=== PATIENT | female | born 1995 | race Caucasian/White ===

== ENCOUNTER 2016-09-08 19:29 | Emergency (ER) | payer MEDICAID ==
[2016-09-08] MEDS ORDERED: FLUCONAZOLE 100 MG TABLET PO STA (20:25)
[2016-09-08] MEDS ORDERED: FLUCONAZOLE 100 MG TABLET ONE (20:26)
--- NOTE | 2016-09-08 20:54 | ED Physician Documentation ---
PD HPI FEMALE - Stated complaint Stated Complaint: FEMALE - Chief complaint Chief Complaint: Abd Pain - History obtained from History obtained from: Patient - History of Present Illness Timing - onset: Yesterday Timing - details: Gradual onset Pain level max: 0 Pain level max: 0 Associated symptoms: Vaginal discharge. No: Fever, Abdominal pain, Pelvic pain , Vaginal pain, Vaginal bleeding, Genital sore/lesion, Dysuria, Urinary frequency Contributing factors: No: Recently seen: Not recently seen - Additional information Additional information: c/o 1 day of vaginal itching and white discharge. She is primarily concerned that symptoms seemed to coincide with recent unprotected sex. She also requests refill of her acyclovir. Review of Systems Constitutional: denies: Fever GI: denies: Abdominal Pain : reports: Discharge. 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 : None HEENT: None Psych: Depression Musculoskeletal: None Derm: None - Past Surgical History Past Surgical History: No - Present Medications Home Medications: Ambulatory Orders Medication Instructions Recorded Confirmed Acyclovir 200 mg PO TID 09/08/16 09/08/16 Acyclovir 800 mg PO BID #14 tablet 09/08/16 - Allergies Allergies/Adverse Reactions: Allergies Allergy/AdvReac Type Severity Reaction Status Date / Time Latex, Natural Rubber AdvReac Rash Verified 09/08/16 19:44 - Social History Does the pt smoke?: No Smoking Status: Never smoker Does the pt drink ETOH?: No Does the pt have substance abuse?: No - Immunizations Immunizations are current?: No - POLST Patient has POLST: No PD ED PE NORMAL - Vitals Vital signs reviewed: Yes - General General: Alert and oriented X 3, No acute distress, Well developed/nourished - Abdomen Abdomen: Soft, Non tender - Back Back: No CVA TTP Results - Vitals Vitals: Vital Signs - 24 hr 09/08/16 09/08/16 19:40 21:43 Temperature 36.7 C Heart Rate 109 H 106 H Respiratory 20 20 Rate Blood Pressure 121/77 123/70 O2 Saturation 99 100 Oxygen O2 Source Room air PD MEDICAL DECISION MAKING - ED course Complexity details: considered differential, d/w patient ED course: Sounds unlikely to be STD, but considering HPI, will test but not treat empirically (I do recommend tx. if results return (+)). Given one-time dose of diflucan for possible karma vaginitis Departure - Departure Disposition: 01 Home, Self Care Clinical Impression: Vaginal discharge Condition: Good Instructions: ED Vaginal Infec Fungal Karma Follow-Up: Winter Guadalupe DO [Provider Admit Priv/Credential] - Within 1 week Prescriptions: Acyclovir 800 mg PO BID #14 tablet Discharge Date/Time: 09/08/16 21:44
[2016-09-08 21:44] VITALS: BP 123/70
== END 2016-09-08 21:44 | disposition home or self-care (01) ==
LOC: ED 19:29
DX: N89.8 Other specified noninflammatory disorders of vagina (principal)
CPT/HCPCS: 87491; 87591; 99283; A9270

== ENCOUNTER 2017-03-10 09:51 | Emergency (ER) | payer MEDICAID ==
[2017-03-10 10:54] LABS: RAPID STREP SCREEN REAGENT QC YELLOW (YELLOW)
--- NOTE | 2017-03-10 11:08 | ED Physician Documentation ---
PD HPI HEENT - Stated complaint Stated Complaint: THROAT PX - Chief complaint Chief Complaint: Heent - History obtained from History obtained from: Patient - History of Present Illness Timing - onset: Last night Timing - duration: Hours Timing - details: Gradual onset, Still present Location: Right ear, Throat Improves: Medication Worsens: Swalllowing Associated symptoms: Congestion, Rhinorrhea, Swollen nodes, Headache, Cough Similar symptoms before: Diagnosis (OM) Recently seen: Not recently seen Review of Systems Constitutional: reports: Myalgias, Fatigue. denies: Fever, Chills Eyes: denies: Decreased vision Ears: reports: Ear pain Nose: reports: Rhinorrhea / runny nose, Congestion Throat: reports: Sore throat Cardiac: denies: Chest pain / pressure, Palpitations Respiratory: reports: Cough. 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 : None HEENT: None Psych: Depression Musculoskeletal: None Derm: None - Past Surgical History Past Surgical History: No - Present Medications Home Medications: Ambulatory Orders Medication Instructions Recorded Confirmed Acyclovir 400 mg PO TID 09/08/16 03/10/17 Azithromycin [Zithromax] 250 mg PO DAILY #6 tablet 03/10/17 - Allergies Allergies/Adverse Reactions: Allergies Allergy/AdvReac Type Severity Reaction Status Date / Time Latex, Natural Rubber AdvReac Rash Verified 03/10/17 10:10 - Social History Does the pt smoke?: No Smoking Status: Never smoker Does the pt drink ETOH?: Yes Does the pt have substance abuse?: No - Immunizations Immunizations are current?: No - POLST Patient has POLST: No PD ED PE NORMAL - Vitals Vital signs reviewed: Yes (Tachycardia and hypertension) - General General: No acute distress, Well developed/nourished - HEENT HEENT: Atraumatic, PERRL, EOMI, Other (The right TM is minimally inflamed as is the left. The pharynx has a 2+ tonsil which is cryptic with exudate on the right side left is much less involved.) - Neck Neck: Supple, no meningeal sign, No bony TTP - Cardiac Cardiac: RRR, No murmur - Respiratory Respiratory: No respiratory distress, Clear bilaterally - Abdomen Abdomen: Soft, Non tender - Derm Derm: Normal color, Warm and dry, No rash - Extremities Extremities: No deformity, No edema - Neuro Neuro: No motor deficit, No sensory deficit Eye Opening: Spontaneous Motor: Obeys Commands Verbal: Oriented GCS Score: 15 - Psych Psych: Normal mood, Normal affect Results - Vitals Vitals: Vital Signs - 24 hr 03/10/17 10:07 Temperature 37.3 C Heart Rate 109 H Respiratory 16 Rate Blood Pressure 131/86 H O2 Saturation 100 Oxygen O2 Source Room air - Labs Labs: Laboratory Tests 03/10/17 10:22 Group A Strep Rapid Negative PD MEDICAL DECISION MAKING - ED course Complexity details: reviewed results, considered differential, d/w patient ED course: 22-year-old female with cryptic tonsil on the right that is inflamed and with exudate. She is given dexamethasone 10 mg here in the emergency department will place her on some azithromycin. Departure - Departure Disposition: 01 Home, Self Care Clinical Impression: Tonsillitis with exudate Condition: Stable Instructions: ED Peritonsillar Infec Abx No I andD Follow-Up: [facility] [Provider Group] Prescriptions: Azithromycin [Zithromax] 250 mg PO DAILY #6 tablet Comments: Today in the Emergency Department your blood pressure was elevated. This can happen from the stress of the visit itself, from a current illness or circumstance or from uncontrolled hypertension. If you take blood pressure medications take your usual mediations, have your blood pressure re-checked in an appropriate setting and follow up any elevation with your primary care doctor. Forms: Activity restrictions
[2017-03-10 11:25] VITALS: BP 119/73
== END 2017-03-10 11:24 | disposition home or self-care (01) ==
LOC: ED 09:51
DX: J03.90 Acute tonsillitis, unspecified (principal); R03.0 Elevated blood-pressure reading, without diagnosis of hypertension
CPT/HCPCS: 87070; 87430; 99283

== ENCOUNTER 2017-04-02 11:26 | Emergency (ER) | payer MEDICAID ==
[2017-04-02 12:23] LABS: MUDS CUTOFF CONCENTRATIONS CUTOFF CONC BELOW:
[2017-04-02 12:25] LABS: HGB - HEMOGLOBIN 14.5 g/dL (12.0-16.0); MEAN CORPUSCULAR HEMOGLOBIN 28.2 pg (27.0-31.0); MEAN CORPUSCULAR HGB CONC 33.7 g/dL (32.0-36.0); MEAN CORPUSCULAR VOLUME 83.6 fL (81.0-99.0); MEAN PLATELET VOLUME 8.2 fL (7.9-10.8); RED BLOOD COUNT 5.14 10^6/uL (4.20-5.40); RED CELL DISTRIBUTION WIDTH 12.6 % (12.0-15.0); WHITE BLOOD COUNT 6.8 x10^3/uL (4.8-10.8)
[2017-04-02 12:26] LABS: BILIRUBIN,URINE NEGATIVE (NEGATIVE); GLUCOSE, URINE (UA) NEGATIVE (NEGATIVE); KETONES,URINE (UA) TRACE mg/dL (NEGATIVE); LEUKOCYTE ESTERASE, URINE NEGATIVE (NEGATIVE); NITRITE,URINE NEGATIVE (NEGATIVE); OCCULT BLOOD,URINE TRACE-INTA (NEGATIVE); PH,URINE 5.5 PH (5.0-7.5); PROTEIN,URINE NEGATIVE (NEGATIVE); UROBILINOGEN,URINE 0.2 (NORMAL) E.U./dL (NORMAL)
[2017-04-02 12:27] LABS: CLARITY,URINE CLEAR (CLEAR); HCG UR QUAL NEGATIVE
[2017-04-02 12:37] LABS: AMPHETAMINE SCREEN,URINE NEGATIVE (NEGATIVE); BENZODIAZEPINES SCREEN, URINE NEGATIVE (NEGATIVE); COCAINE SCREEN URINE NEGATIVE (NEGATIVE); METHAMPHETAMINES SCREEN, URINE NEGATIVE (NEGATIVE); OPIATE SCREEN, URINE NEGATIVE (NEGATIVE)
--- NOTE | 2017-04-02 12:37 | ED Physician Documentation ---
PD HPI MHE - Stated complaint Stated Complaint: ANXIETY - Chief complaint Chief Complaint: General - History obtained from History obtained from: Patient - History of Present Illness Primary symptom: Suicidal ideation, Anxiety Timing - onset: How many days ago (several) Pain level max: 0 Pain level now: 0 Contributing factors: Family Similar symptoms before: Diagnosis (anxiety, depression) Recently seen: Not recently seen - Additional information Additional information: Patient is a 22-year-old female who moved with the mora approximately 6 years ago. She states she has had increasing anxiety over the past several weeks. She has been feeling more more suicidal. Has cut her wrists in the past. Was last hospitalized as a child. Does not have a doctor on the mora. Does not have a psychiatrist or therapist that she sees. She states that she does feel like her family is supportive of her. Review of Systems Ten Systems: 10 systems reviewed and negative Constitutional: denies: Fever, Chills Ears: denies: Ear pain Nose: denies: Rhinorrhea / runny nose, Congestion Throat: denies: Sore throat Cardiac: denies: Chest pain / pressure Respiratory: denies: Cough GI: denies: Abdominal Pain, Nausea, Vomiting, Diarrhea Skin: denies: Rash Musculoskeletal: denies: Neck pain, Back pain Neurologic: denies: Headache Psychiatric: reports: Depressed, Suicidal, Anxiety, Insomnia. 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 : None HEENT: None Psych: Depression Musculoskeletal: None Derm: None - Past Surgical History Past Surgical History: No - Present Medications Home Medications: Ambulatory Orders Medication Instructions Recorded Confirmed Acyclovir 400 mg PO TID 09/08/16 03/10/17 Azithromycin [Zithromax] 250 mg PO DAILY #6 tablet 03/10/17 LORazepam [Ativan] 0.5 mg PO Q8H PRN #6 tablet 04/02/17 - Allergies Allergies/Adverse Reactions: Allergies Allergy/AdvReac Type Severity Reaction Status Date / Time Latex, Natural Rubber AdvReac Rash Verified 03/10/17 10:10 - Social History Does the pt smoke?: No Smoking Status: Never smoker Does the pt drink ETOH?: Yes Does the pt have substance abuse?: No - Immunizations Immunizations are current?: No - POLST Patient has POLST: No PD ED PE NORMAL - Vitals Vital signs reviewed: Yes - General General: Alert and oriented X 3, No acute distress, Well developed/nourished, Other (tearful) - HEENT HEENT: PERRL, Moist mucous membranes, Pharynx benign - Neck Neck: Supple, no meningeal sign - Cardiac Cardiac: RRR, Strong equal pulses - Respiratory Respiratory: No respiratory distress, Clear bilaterally - Abdomen Abdomen: Soft, Non tender, Non distended - Derm Derm: Warm and dry, Other (old scars to B wrists) - Extremities Extremities: No deformity - Neuro Neuro: Alert and oriented X 3 - Psych Psych: Other (tearful) Results - Vitals Vitals: Vital Signs - 24 hr 04/02/17 04/02/17 04/02/17 11:33 13:09 14:37 Temperature 37.2 C 36.8 C 36.9 C Heart Rate 88 74 91 Respiratory 16 16 18 Rate Blood Pressure 133/102 H 110/80 117/81 H O2 Saturation 99 99 100 Oxygen O2 Source Room air - Labs Labs: Laboratory Tests 04/02/17 04/02/17 04/02/17 11:55 11:55 11:55 WBC RBC Hgb Hct MCV MCH MCHC RDW Plt Count MPV Sodium Potassium Chloride Carbon Dioxide Anion Gap BUN Creatinine Estimated GFR (MDRD) Glucose Calcium Total Bilirubin AST ALT Alkaline Phosphatase Total Protein Albumin Globulin Albumin/Globulin Ratio Lipase Urine Color YELLOW Urine Clarity CLEAR Urine pH 5.5 Ur Specific [place] 1.025 1.025 Urine Protein NEGATIVE Urine Glucose (UA) NEGATIVE Urine Ketones TRACE Urine Occult Blood TRACE-INTA Urine Nitrite NEGATIVE Urine Bilirubin NEGATIVE Urine Urobilinogen 0.2 (NORMAL) Ur Leukocyte Esterase NEGATIVE Ur Microscopic Review NOT INDICATED Urine Culture Comments NOT INDICATED Urine HCG, Qual NEGATIVE Salicylates Urine Opiates Screen NEGATIVE Ur Oxycodone Screen NEGATIVE Urine Methadone Screen NEGATIVE Ur Propoxyphene Screen NEGATIVE Acetaminophen Ur Barbiturates Screen NEGATIVE Ur Tricyclics Screen NEGATIVE Ur Phencyclidine Scrn NEGATIVE Ur Amphetamine Screen NEGATIVE U Methamphetamines Scrn NEGATIVE U Benzodiazepines Scrn NEGATIVE Urine Cocaine Screen NEGATIVE U Cannabinoids Screen POSITIVE H Ethyl Alcohol 04/02/17 04/02/17 12:19 12:19 WBC 6.8 RBC 5.14 Hgb 14.5 Hct 43.0 MCV 83.6 MCH 28.2 MCHC 33.7 RDW 12.6 Plt Count 230 MPV 8.2 Sodium 136 Potassium 4.0 Chloride 105 Carbon Dioxide 23 Anion Gap 8.0 BUN 17 Creatinine 0.5 Estimated GFR (MDRD) 152 Glucose 92 Calcium 9.1 Total Bilirubin 0.5 AST 23 ALT 18 Alkaline Phosphatase 31 L Total Protein 7.3 Albumin 4.5 Globulin 2.8 Albumin/Globulin Ratio 1.6 Lipase 23 Urine Color Urine Clarity Urine pH Ur Specific [place] Urine Protein Urine Glucose (UA) Urine Ketones Urine Occult Blood Urine Nitrite Urine Bilirubin Urine Urobilinogen Ur Leukocyte Esterase Ur Microscopic Review Urine Culture Comments Urine HCG, Qual Salicylates < 6.0 Urine Opiates Screen Ur Oxycodone Screen Urine Methadone Screen Ur Propoxyphene Screen Acetaminophen < 10 L Ur Barbiturates Screen Ur Tricyclics Screen Ur Phencyclidine Scrn Ur Amphetamine Screen U Methamphetamines Scrn U Benzodiazepines Scrn Urine Cocaine Screen U Cannabinoids Screen Ethyl Alcohol < 5.0 PD MEDICAL DECISION MAKING - ED course Complexity details: reviewed results, re-evaluated patient, considered differential, d/w patient ED course: Patient is a 22-year-old female who presents to the emergency department with worsening anxiety, depression and vague suicidal ideation. No current plan. Patient is medically clear for psychiatric care. Social work was consulted and the patient is able to contract for safety and will follow up with the next day appointment at [facility]. She has good family support at home. She will return if she worsens. Patient counseled regarding signs and symptoms for which I believe and urgent re-evaluation would be necessary. Patient with good understanding of and agreement to plan and is comfortable going home at this time This document was made in part using voice recognition software. While efforts are made to proofread this document, sound alike and grammatical errors may occur. Departure - Departure Disposition: 01 Home, Self Care Clinical Impression: Anxiety Depression Qualifiers: Depression Type: unspecified Qualified Code(s): F32.9 - Major depressive disorder, single episode, unspecified Condition: Good Instructions: ED Stress React, ED Depression Prescriptions: LORazepam [Ativan] 0.5 mg PO Q8H PRN #6 tablet PRN Reason: Anxiety Comments: Follow up with [facility] tomorrow as scheduled with Ashley (social work) today. Return if you worsen. Do not drive or operate heavy machinery for at least 8 hours after taking Ativan. Crisis Line and is available to talk to someone [email or web address] is also available to chat with someone online if you prefer. There are also many resources on this website and apps for your phone to help with your mental health Discharge Date/Time: 04/02/17 14:47
[2017-04-02 12:38] LABS: METHADONE SCREEN, URINE NEGATIVE (NEGATIVE); OXYCODONE SCREEN, URINE NEGATIVE (NEGATIVE); PROPOXYPHENE SCREEN, URINE NEGATIVE (NEGATIVE); TRICYCLIC ANTIDEPRESSANT,URINE NEGATIVE (NEGATIVE)
[2017-04-02] MEDS ORDERED: CETIRIZINE 10 MG TABLET PO STA (12:46)
[2017-04-02 12:47] LABS: ALBUMIN 4.5 g/dL (3.2-5.5); ALBUMIN/GLOBULIN RATIO 1.6 (1.0-2.2); ALKALINE PHOSPHATASE 31 IU/L (42-121); ALT ALANINE AMINOTRANSFERASE 18 IU/L (10-60); AST ASPARTATE AMINOTRANSFERASE 23 IU/L (10-42); BILIRUBIN,TOTAL 0.5 mg/dL (0.2-1.0); BUN - BLOOD UREA NITROGEN 17 mg/dL (6-20); CALCIUM 9.1 mg/dL (8.5-10.3); CARBON DIOXIDE - CO2 23 mmol/L (21-32); CHLORIDE 105 mmol/L (101-111); CREATININE 0.5 mg/dL (0.4-1.0); GFR - MDRD 152 (>89); GLUCOSE 92 mg/dL (70-100); LIPASE 23 U/L (22-51); SALICYLATE < 6.0 mg/dL; SODIUM 136 mmol/L (135-145); TOTAL PROTEIN 7.3 g/dL (6.7-8.2)
[2017-04-02 12:52] LABS: ACETAMINOPHEN < 10 ug/mL (10-30)
[2017-04-02 14:39] VITALS: BP 117/81
[2017-04-02] MEDS ORDERED: IBUPROFEN 600 MG TABLET PO STA (14:39)
== END 2017-04-02 14:47 | disposition home or self-care (01) ==
LOC: ED 11:26
DX: F32.9 Major depressive disorder, single episode, unspecified (principal)
CPT/HCPCS: 36415; 80053; 80306; 80307; 80320; 80329; 81003; 81025; 83690; 85027; 99283; 99284; A9270; 81001; 87086

== ENCOUNTER 2017-07-21 23:20 | Emergency (ER) | payer MEDICAID ==
[2017-07-21 23:38] LABS: BILIRUBIN,URINE NEGATIVE (NEGATIVE); GLUCOSE, URINE (UA) NEGATIVE (NEGATIVE); KETONES,URINE (UA) NEGATIVE (NEGATIVE); LEUKOCYTE ESTERASE, URINE SMALL (NEGATIVE); NITRITE,URINE NEGATIVE (NEGATIVE); OCCULT BLOOD,URINE NEGATIVE (NEGATIVE); PROTEIN,URINE NEGATIVE (NEGATIVE); UROBILINOGEN,URINE 0.2 (NORMAL) E.U./dL (NORMAL)
[2017-07-21 23:39] LABS: CLARITY,URINE CLEAR (CLEAR)
[2017-07-21 23:41] LABS: HCG UR QUAL NEGATIVE
[2017-07-21 23:44] LABS: BACTERIA,URINE Few /HPF (None Seen); SQUAMOUS EPITHELIAL CELL,UR MANY Squamous (<= Few)
--- NOTE | 2017-07-22 00:29 | ED Physician Documentation ---
PD HPI FEMALE - Stated complaint Stated Complaint: FEMALE - Chief complaint Chief Complaint: Abd Pain - History obtained from History obtained from: Patient - History of Present Illness Timing - onset: How many days ago (2-3) Timing - duration: Days Associated symptoms: Dysuria. No: Fever Contributing factors: No: Recently seen: Not recently seen - Additional information Additional information: c/o burning dysuria x 2-3 days. denies frequency or vaginal discharge. she is sexually active and requests STD tests, as well. Review of Systems Constitutional: denies: Fever GI: reports: Reviewed and negative : reports: Dysuria. 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 : None HEENT: None Psych: Depression Musculoskeletal: None Derm: None - Past Surgical History Past Surgical History: No - Present Medications Home Medications: Ambulatory Orders Medication Instructions Recorded Confirmed Acyclovir 400 mg PO TID 09/08/16 03/10/17 Azithromycin [Zithromax] 250 mg PO DAILY #6 tablet 03/10/17 LORazepam [Ativan] 0.5 mg PO Q8H PRN #6 tablet 04/02/17 Nitrofurantoin [Macrobid] 100 mg PO BID #9 capsule 07/22/17 - Allergies Allergies/Adverse Reactions: Allergies Allergy/AdvReac Type Severity Reaction Status Date / Time Latex, Natural Rubber AdvReac Rash Verified 07/21/17 23:31 - Social History Does the pt smoke?: No Smoking Status: Never smoker Does the pt drink ETOH?: Yes Does the pt have substance abuse?: No - Immunizations Immunizations are current?: No - POLST Patient has POLST: No PD ED PE NORMAL - Vitals Vital signs reviewed: Yes - General General: Alert and oriented X 3, No acute distress, Well developed/nourished - Abdomen Abdomen: Soft, Non tender - Back Back: No CVA TTP Results - Vitals Vitals: Vital Signs - 24 hr 07/21/17 07/22/17 23:24 00:51 Temperature 36.0 C L Heart Rate 86 68 Respiratory 16 18 Rate Blood Pressure 115/68 98/67 O2 Saturation 97 95 Oxygen O2 Source Room air - Labs Labs: Laboratory Tests 07/21/17 23:34 Urine Color YELLOW Urine Clarity CLEAR Urine pH 6.0 Ur Specific [place] 1.010 Urine Protein NEGATIVE Urine Glucose (UA) NEGATIVE Urine Ketones NEGATIVE Urine Occult Blood NEGATIVE Urine Nitrite NEGATIVE Urine Bilirubin NEGATIVE Urine Urobilinogen 0.2 (NORMAL) Ur Leukocyte Esterase SMALL H Urine RBC 6-10 H Urine WBC 6-10 H Ur Squamous Epith Cells MANY Squamous H Urine Bacteria Few Ur Microscopic Review INDICATED Urine Culture Comments NOT INDICATED Urine HCG, Qual NEGATIVE PD MEDICAL DECISION MAKING - ED course Complexity details: reviewed results, considered differential, d/w patient ED course: will treat as UTI although she will need additional treatment if GC/C (+]. she does not describe symptoms particularly suggestive of GC/C, so will defer treatment pending results Departure - Departure Disposition: 01 Home, Self Care Clinical Impression: Cystitis, UTI (urinary tract infection) Condition: Good Instructions: ED UTI Cystitis Female Follow-Up: [facility] [Provider Group] [facility] [Provider Group] Prescriptions: Nitrofurantoin [Macrobid] 100 mg PO BID #9 capsule Comments: You can also take pyridium (Azo is one of the more common brand names) as directed on the label for the symptoms. Discharge Date/Time: 07/22/17 00:51
[2017-07-22] MEDS ORDERED: NITROFURANTOIN MACRO 100 MG CAPSULE PO STA (00:43)
[2017-07-22] MEDS ORDERED: PHENAZOPYRIDINE 100 MG TABLET PO STA (00:43)
[2017-07-22 00:51] VITALS: BP 98/67
== END 2017-07-22 00:51 | disposition home or self-care (01) ==
LOC: ED 23:20
DX: N30.00 Acute cystitis without hematuria (principal)
CPT/HCPCS: 81001; 81025; 87491; 87591; 99283; A9270; 81003; 87086

== ENCOUNTER 2017-08-29 20:16 | Emergency (ER) | payer MEDICAID ==
[2017-08-29 20:21] VITALS: BP 115/87
--- NOTE | 2017-08-29 20:27 | ED Physician Documentation ---
PD HPI NVD - Stated complaint Stated Complaint: NAUSEA/ABD PX - Chief complaint Chief Complaint: Abd Pain - History obtained from History obtained from: Patient - History of Present Illness Timing - onset: Unknown ("a while ago"; asked to give general time frame, she repeats "for a while". I ask if it's been days, weeks, months, or years, and she tells me "it should all be in the chart".) Timing - details: Other (unknown (various c/o; see below)) - Additonal information Additional information: limited HPI and ROS. Patient tells me "my stomach hurts, my head hurts, my anxiety is acting up, my head hurts, I just feel like shit" (per patient). I ask for clarification and for her to provide me with, specifically, what bothers her the most tonight, and she says "everything. I feel like everything is wrong". By way of example, I explain that if her big toe hurts, I would consider gout, but if it does not, I would not have to worry about this diagnosis. She says "both of my feet do hurt because I've been working for 12 hours straight". At this point, I again asked her to try to narrow down the symptoms she was having that were the most bothersome at this time. Unfortunately, she again gives a long list of c/o similar to previous answer ("my stomach, my head, I'm nauseas...everything. It's everything." (per patient)). I ask what medications she takes, and she says "whatever you guys gave me last time. It's on the chart ". I ask if she has a doctor and she says no. I ask if she has insurance (for purposes of both follow-up as well as ascertaining whether previous testing has been performed for these symptoms), and she says she does and that she has an appointment in about 2 weeks with a doctor. She repeatedly refers me to "look at the chart". 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 HEENT: None Psych: Depression Musculoskeletal: None Derm: None - Past Surgical History Past Surgical History: No - Present Medications Home Medications: Ambulatory Orders Medication Instructions Recorded Confirmed No Known Home Medications [No 08/29/17 08/29/17 Known Home Medications] - Allergies Allergies/Adverse Reactions: Allergies Allergy/AdvReac Type Severity Reaction Status Date / Time Latex, Natural Rubber AdvReac Rash Verified 08/29/17 20:20 - Social History Does the pt smoke?: No Smoking Status: Never smoker Does the pt drink ETOH?: Yes Does the pt have substance abuse?: No - Immunizations Immunizations are current?: No - POLST Patient has POLST: No PD ED PE NORMAL - Vitals Vital signs reviewed: Yes - General General: Alert and oriented X 3, No acute distress, Well developed/nourished, Other (poor eye contact) - HEENT HEENT: PERRL, EOMI, Moist mucous membranes - Derm Derm: Normal color, Warm and dry - Neuro Neuro: Alert and oriented X 3, Normal speech Eye Opening: Spontaneous Motor: Obeys Commands Verbal: Oriented GCS Score: 15 Results - Vitals Vitals: Vital Signs - 24 hr 08/29/17 20:18 Temperature 36.8 C Heart Rate 92 Respiratory 16 Rate Blood Pressure 115/87 H O2 Saturation 100 Oxygen O2 Source Room air - Labs Labs: Laboratory Tests 08/29/17 08/29/17 20:29 20:29 WBC 10.7 RBC 5.23 Hgb 14.5 Hct 44.8 MCV 85.6 MCH 27.8 MCHC 32.5 RDW 12.8 Plt Count 293 MPV 7.7 L Neut # 7.4 H Lymph # 2.5 [place] # 0.7 Eos # 0.0 Baso # 0.1 Absolute Nucleated RBC 0.01 Nucleated RBC % 0.0 Sodium 135 Potassium 3.2 L Chloride 101 Carbon Dioxide 26 Anion Gap 8.0 BUN 8 Creatinine 0.7 Estimated GFR (MDRD) 103 Glucose 91 Calcium 9.3 Total Bilirubin 1.1 H AST 28 ALT 19 Alkaline Phosphatase 36 L Total Protein 7.7 Albumin 4.6 Globulin 3.1 Albumin/Globulin Ratio 1.5 Lipase 25 PD MEDICAL DECISION MAKING - ED course Complexity details: reviewed old records, considered differential, d/w patient ED course: Patient did not provide clear or concise answers to HPI/ROS questions. On exam, she repeatedly put her hands over her abdomen even after I asked her to move them to the side so that I could perform exam; I explained that I would push gently, but I needed to perform an exam to assess if she is tender. She consistently would immediately move both hands in the exact location I was just starting to apply pressure to each time I would try. I explained that we would start with IV fluids, antinauseant IV, and blood work and urinalysis, and that I would try again with getting more information from her after this was completed. Shortly after I left the room, she was asked for insurance information by registration, and, I am told, patient then got up without assistance or difficulty and walked out of ED. 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
[2017-08-29 20:35] LABS: BASOPHILS # (AUTO) 0.1 10^3/uL (0.0-0.1); BASOPHILS % (AUTO) 0.7 %; EOSINOPHILS % (AUTO) 0.1 %; HGB - HEMOGLOBIN 14.5 g/dL (12.0-16.0); LYMPHOCYTES # (AUTO) 2.5 10^3/uL (1.5-3.5); LYMPHOCYTES % (AUTO) 23.4 %; MEAN CORPUSCULAR HEMOGLOBIN 27.8 pg (27.0-31.0); MEAN CORPUSCULAR HGB CONC 32.5 g/dL (32.0-36.0); MEAN CORPUSCULAR VOLUME 85.6 fL (81.0-99.0); MEAN PLATELET VOLUME 7.7 fL (7.9-10.8); MONOCYTES # (AUTO) 0.7 10^3/uL (0.0-1.0); MONOCYTES % (AUTO) 6.7 %; NEUTROPHILS # (AUTO) 7.4 10^3/uL (1.5-6.6); NEUTROPHILS % (AUTO) 69.1 %; PLT - PLATELET COUNT 293 10^3/uL (130-450); RED BLOOD COUNT 5.23 10^6/uL (4.20-5.40); RED CELL DISTRIBUTION WIDTH 12.8 % (12.0-15.0); WHITE BLOOD COUNT 10.7 x10^3/uL (4.8-10.8)
[2017-08-29] MEDS ORDERED: ONDANSETRON 4 MG/2 ML VIAL IVP STA (20:40)
[2017-08-29] MEDS ORDERED: SODIUM CHLORIDE 0.9% 1,000 ML IV STA (20:40)
[2017-08-29 20:47] LABS: ALBUMIN 4.6 g/dL (3.2-5.5); ALBUMIN/GLOBULIN RATIO 1.5 (1.0-2.2); BILIRUBIN,TOTAL 1.1 mg/dL (0.2-1.0); CALCIUM 9.3 mg/dL (8.5-10.3); CREATININE 0.7 mg/dL (0.4-1.0); TOTAL PROTEIN 7.7 g/dL (6.7-8.2)
== END 2017-08-29 20:45 | disposition left against medical advice (07) ==
LOC: ED 20:16
DX: R10.9 Unspecified abdominal pain (principal); R51 Headache; F41.9 Anxiety disorder, unspecified; Z53.29 Procedure and treatment not carried out because of patient's decision for other reasons
CPT/HCPCS: 36415; 80053; 83690; 85025; 99282

== ENCOUNTER 2017-10-11 15:02 | Emergency (ER) | payer MEDICAID ==
[2017-10-11 15:22] VITALS: BP 124/75
[2017-10-11] MEDS ORDERED: IBUPROFEN 800 MG TABLET PO STA (15:49)
[2017-10-11] MEDS ORDERED: PENICILLIN VK 250 MG TABLET PO STA (16:37)
[2017-10-11] MEDS ORDERED: DEXAMETHASONE 10 MG/ML VIAL PO STA (16:38)
--- NOTE | 2017-10-11 16:46 | ED Physician Documentation ---
PD HPI HEENT - Stated complaint Stated Complaint: LT EAR PX/SOA/VOMITING - Chief complaint Chief Complaint: Heent - History obtained from History obtained from: Patient - History of Present Illness Timing - onset: How many days ago (2) Timing - details: Still present Location: Throat Associated symptoms: Swollen nodes Similar symptoms before: Has not had sx before - Additional information Additional information: The patient is a 22-year-old female who presents with sore throat that has been getting progressively worse over the past 2 days. She also reports left earache and frontal headache. She reports slight cough, nonproductive. She denies fever, shortness of breath, or abdominal pain. She denies history of similar symptoms in the past. Review of Systems Constitutional: denies: Fever Eyes: denies: Irritation Ears: reports: Ear pain (left) Nose: denies: Congestion Throat: reports: Sore throat Cardiac: denies: Chest pain / pressure Respiratory: reports: Cough (slight). denies: Dyspnea GI: reports: Vomiting (Once today after eating.). 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 : None HEENT: None Psych: Depression Musculoskeletal: None Derm: None - Past Surgical History Past Surgical History: No - Present Medications Home Medications: Ambulatory Orders Medication Instructions Recorded Confirmed HYDROcod/ACETAM 5/325 [Vicodin 1 ea PO Q6H PRN #10 tablet 10/11/17 5/325] Penicillin V Potassium 500 mg PO QID #40 tablet 10/11/17 - Allergies Allergies/Adverse Reactions: Allergies Allergy/AdvReac Type Severity Reaction Status Date / Time Latex, Natural Rubber AdvReac Rash Verified 10/11/17 15:22 - Social History Does the pt smoke?: No Smoking Status: Never smoker Does the pt drink ETOH?: Yes Does the pt have substance abuse?: No - Immunizations Immunizations are current?: No - POLST Patient has POLST: No PD ED PE NORMAL - Vitals Vital signs reviewed: Yes (normal) - General General: Alert and oriented X 3, Well developed/nourished, Other (Talks with muffled voice.) - HEENT HEENT: Atraumatic, Moist mucous membranes, Other (Oropharynx is erythematous, with scant exudates bilaterally.) - Neck Neck: Supple, no meningeal sign, Other (Enlarged anterior cervical nodes bilaterally, more on the left than the right.) - Cardiac Cardiac: RRR, No murmur - Respiratory Respiratory: No respiratory distress, Clear bilaterally - Abdomen Abdomen: Soft, Non tender - Back Back: No CVA TTP - Derm Derm: No rash - Extremities Extremities: No edema - Neuro Neuro: Alert and oriented X 3, No motor deficit Results - Vitals Vitals: Vital Signs - 24 hr 10/11/17 15:18 Temperature 36.8 C Heart Rate 92 Respiratory 16 Rate Blood Pressure 124/75 O2 Saturation 100 Oxygen O2 Source Room air - Labs Labs: Laboratory Tests 10/11/17 15:45 Group A Strep Rapid POSITIVE H PD MEDICAL DECISION MAKING - ED course Complexity details: reviewed results, re-evaluated patient, considered differential, d/w patient ED course: The patient's presentation is most consistent with acute streptococcal pharyngitis, with a positive rapid strep screen. Clinical assessment does not suggest peritonsillar abscess. Treatment in the emergency department included administration of ibuprofen 800 mg orally, penicillin 500 mg orally, and dexamethasone 10 mg orally. She is being discharged with prescriptions for penicillin and Vicodin, 10 tablets. I discussed with her the expected course of illness, antibiotic treatment and outpatient follow-up, as well as potentially worrisome signs or symptoms that should prompt reevaluation in the emergency department. - Sepsis Event Vital Signs: Vital Signs - 24 hr 10/11/17 15:18 Temperature 36.8 C Heart Rate 92 Respiratory 16 Rate Blood Pressure 124/75 O2 Saturation 100 Oxygen O2 Source Room air Departure - Departure Disposition: 01 Home, Self Care Clinical Impression: Acute streptococcal pharyngitis Condition: Stable Instructions: ED Strep Pharyngitis Conf Prescriptions: HYDROcod/ACETAM 5/325 [Vicodin 5/325] 1 ea PO Q6H PRN #10 tablet PRN Reason: Pain Penicillin V Potassium 500 mg PO QID #40 tablet Comments: Gargle with cool liquids. Take penicillin 4 times daily as prescribed. You can use ibuprofen, up to 800 mg 3 times daily for its anti-inflammatory effect. You can use Vicodin as prescribed if needed for pain. Follow-up with primary physician, or return to the emergency department, if you develop increasing difficulty swallowing, or otherwise worsening symptoms. Discharge Date/Time: 10/11/17 16:56
== END 2017-10-11 16:56 | disposition home or self-care (01) ==
LOC: ED 15:02
DX: J02.0 Streptococcal pharyngitis (principal)
CPT/HCPCS: 87430; 99283; A9270

== ENCOUNTER 2018-01-07 15:23 | Outpatient (CLI) | payer MEDICAID ==
[2018-01-07 19:04] LABS: BASOPHILS # (AUTO) 0.1 10^3/uL (0.0-0.1); BASOPHILS % (AUTO) 0.7 %; EOSINOPHILS # (AUTO) 0.1 10^3/uL (0.0-0.7); EOSINOPHILS % (AUTO) 1.6 %; HGB - HEMOGLOBIN 14.7 g/dL (12.0-16.0); LYMPHOCYTES # (AUTO) 2.6 10^3/uL (1.5-3.5); LYMPHOCYTES % (AUTO) 31.9 %; MEAN CORPUSCULAR HEMOGLOBIN 28.7 pg (27.0-31.0); MEAN CORPUSCULAR HGB CONC 33.4 g/dL (32.0-36.0); MEAN PLATELET VOLUME 8.9 fL (7.9-10.8); MONOCYTES # (AUTO) 0.7 10^3/uL (0.0-1.0); NEUTROPHILS # (AUTO) 4.6 10^3/uL (1.5-6.6); NEUTROPHILS % (AUTO) 56.8 %; PLT - PLATELET COUNT 261 10^3/uL (130-450); RED BLOOD COUNT 5.11 10^6/uL (4.20-5.40); RED CELL DISTRIBUTION WIDTH 13.2 % (12.0-15.0); WHITE BLOOD COUNT 8.2 x10^3/uL (4.8-10.8)
[2018-01-07 19:14] LABS: CALCIUM 9.2 mg/dL (8.5-10.3); CREATININE 0.6 mg/dL (0.4-1.0)
== END 2018-01-07 15:24 | disposition home or self-care (01) ==
LOC: LAB.N 15:23
PROVIDERS: ATTEND Physician Assistant Medical
DX: F41.1 Generalized anxiety disorder (principal)
CPT/HCPCS: 36415; 80048; 84443; 85025

== ENCOUNTER 2018-05-15 21:03 | Emergency (ER) | payer MEDICAID ==
[2018-05-15] MEDS ORDERED: KETOROLAC 30 MG/ML VIAL IVP STA (21:24)
[2018-05-15] MEDS ORDERED: AMPICILLIN/SULBACTAM 3 GM in SODIUM CHLORIDE 0.9% MINIBAG 100 ML IV STA (21:25)
[2018-05-15] MEDS ORDERED: SODIUM CHLORIDE 0.9% 1,000 ML IV ONE (21:25)
[2018-05-15] MEDS ORDERED: DEXAMETHASONE 10 MG/ML VIAL IVP STA (21:25)
--- NOTE | 2018-05-15 21:28 | ED Physician Documentation ---
PD HPI HEENT - Stated complaint Stated Complaint: SORE THROAT/L EAR PX - Chief complaint Chief Complaint: Heent - History obtained from History obtained from: Patient - History of Present Illness Timing - onset: Other (3 days of sore throat especially on the left radiating to the left ear and difficulty swallowing) Review of Systems Constitutional: denies: Fever, Chills Nose: denies: Rhinorrhea / runny nose, Congestion Throat: reports: Sore throat Cardiac: denies: Chest pain / pressure, Palpitations PD PAST MEDICAL HISTORY - Past Medical History Past Medical History: Yes Cardiovascular: None Respiratory: None Endocrine/Autoimmune: None GI: None 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 HEENT: None Psych: Depression Musculoskeletal: None Derm: None Other Past Medical History: Herpes simplex - Past Surgical History Past Surgical History: No - Present Medications Home Medications: Ambulatory Orders Medication Instructions Recorded Confirmed HYDROcod/ACETAM 5/325 [Vicodin 1 ea PO Q6H PRN #10 tablet 10/11/17 5/325] Penicillin V Potassium 500 mg PO QID #40 tablet 10/11/17 Amox/Clav 875/125 [Augmentin] 1 each PO Q12H #20 tablet 05/15/18 predniSONE [Deltasone] 20 mg PO [id number] #21 tab 05/15/18 - Allergies Allergies/Adverse Reactions: Allergies Allergy/AdvReac Type Severity Reaction Status Date / Time Latex, Natural Rubber AdvReac Rash Verified 10/11/17 15:22 - Social History Does the pt smoke?: Yes Smoking Status: Current some day smoker Does the pt drink ETOH?: Yes Does the pt have substance abuse?: No - Immunizations Immunizations are current?: Yes - POLST Patient has POLST: No PD ED PE NORMAL - Vitals Vital signs reviewed: Yes - General General: Alert and oriented X 3, No acute distress - HEENT HEENT: Other (She has a muffled hot potato voice with prominence of the left tonsil but I do not see anything to drain at this juncture but it is consistent with an early peritonsillar abscess. She also has moderate anterior cervical adenopathy.) - Neuro Neuro: Alert and oriented X 3, Normal speech Results - Vitals Vitals: Vital Signs - 24 hr 05/15/18 21:06 Temperature 37.5 C Heart Rate 108 H Respiratory 18 Rate Blood Pressure 117/81 H O2 Saturation 100 Oxygen O2 Source Room air Departure - Departure Disposition: Home, Self Care Clinical Impression: Peritonsillar abscess Condition: Good Record reviewed to determine appropriate education?: Yes Instructions: ED Peritonsillar Abscess Prescriptions: Amox/Clav 875/125 [Augmentin] 1 each PO Q12H #20 tablet predniSONE [Deltasone] 20 mg PO [id number] #21 tab Comments: If you are having persistent problems in a couple of days you either need to return here for reevaluation or to follow-up with an ear nose and throat physician. The closest to you is in [place], the phone number is [phone]. Forms: Activity restrictions
[2018-05-15 22:41] VITALS: BP 120/80
== END 2018-05-15 22:48 | disposition home or self-care (01) ==
LOC: ED 21:03
DX: J36 Peritonsillar abscess (principal); F17.200 Nicotine dependence, unspecified, uncomplicated
CPT/HCPCS: 96365; 96375; 99283

== ENCOUNTER 2018-10-08 08:00 | Outpatient (CLI) | payer BC ==
[2018-10-08 21:00] LABS: CANDIDA GROUP DNA NEGATIVE (NEGATIVE); CANDIDA KRUSEI DNA NEGATIVE (NEGATIVE); TRICHOMONAS VAGINALIS DNA NEGATIVE (NEGATIVE)
[2018-10-08 21:53] LABS: TRICHOMONAS VAGINALIS DNA NEGATIVE (NEGATIVE)
== END 2018-10-08 08:01 | disposition home or self-care (01) ==
LOC: LAB.R 08:00
PROVIDERS: ATTEND Obstetrics & Gynecology
DX: R10.2 Pelvic and perineal pain (principal)
CPT/HCPCS: 87491; 87591; 87661; 87801

== ENCOUNTER 2018-10-09 13:49 | Outpatient (CLI) | payer BC ==
--- NOTE | 2018-10-09 16:12 | Ultrasound Report ---
Reason: PELVIC PAIN,FEMALE Procedure Date: 10/09/2018 Accession Number: [id number] / [id number] Procedure: US - Pelvic w/Transvaginal CPT Code: FULL RESULT: EXAM: PELVIC ULTRASOUND EXAM DATE: 10/09/2018 02:44 PM. CLINICAL HISTORY: Pelvic pain. COMPARISON: None. TECHNIQUE: Realtime transabdominal pelvic scan performed to identify the uterus and adnexa and as an overview of other pelvic structures, followed by transvaginal scan to provide greater detail of the uterus and adnexa, with static image documentation. FINDINGS: Uterus: 8.4 x 3.6 x 4.8 cm, volume 78 cc. Anteverted position. Normal overall size and echotexture. Masses: None. Endometrium: 4 mm. An IUD is in satisfactory position in the distal canal. No masses or thickening evident. Cervix: Unremarkable. Right Ovary: 4.0 x 2.3 x 3.0 cm, volume 15 cc. Normal echotexture and blood flow. Left Ovary: 4.1 x 1.9 x 2.4 cm, volume 10 cc. A hypoechoic vascular focus measures 1.6 x 1.5 x 1.3 cm, possibly sequela of collapsed corpus luteal cyst. No torsion evident. Free Fluid: None. Other: None. IMPRESSION: 1. Indeterminate hypoechoic 1.6 cm mass of the left ovarian focus, possibly sequela of collapsed corpus luteal cyst. Sonographic follow-up could be considered to ensure resolution in approximately 2 months. 2. IUD in satisfactory position. RADIA
== END 2018-10-09 13:50 | disposition home or self-care (01) ==
LOC: DI 13:49
PROVIDERS: ATTEND Obstetrics & Gynecology
DX: R10.2 Pelvic and perineal pain (principal); N83.9 Noninflammatory disorder of ovary, fallopian tube and broad ligament, unspecified; Z97.5 Presence of (intrauterine) contraceptive device
CPT/HCPCS: 76830; 76856

== ENCOUNTER 2019-03-09 08:05 | Emergency (ER) | payer OTHER, BC, MEDICAID ==
[2019-03-09 08:15] VITALS: BP 112/88
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
== END 2019-03-09 08:36 | disposition home or self-care (01) ==
LOC: ED 08:05
DX: S43.401A Unspecified sprain of right shoulder joint, initial encounter (principal); S63.501A Unspecified sprain of right wrist, initial encounter; V47.0XXA Car driver injured in collision with fixed or stationary object in nontraffic accident, initial encounter; W22.11XA Striking against or struck by driver side automobile airbag, initial encounter; Y92.410 Unspecified street and highway as the place of occurrence of the external cause; F17.200 Nicotine dependence, unspecified, uncomplicated
CPT/HCPCS: 99282; 99284